=== PATIENT | female | born 1975 | race African-American/Black ===

== ENCOUNTER 2017-08-05 01:20 | Inpatient (IN) | payer MEDICAID ==
[~2017-08-05] VITALS: Ht 170.2 cm; Wt 79.8 kg
[~2017-08-05 01:20] MED LIST: FERR325E14 PO; [UNRECOGNIZED DRUG - REMARK] PO
[2017-08-05 01:25] VITALS: BP 136/82
--- NOTE | 2017-08-05 01:33 | NUR ---
TO ER BED 6
--- NOTE | 2017-08-05 01:37 | NUR ---
PATIENT PRESENTS TO ED WITH C/O LOWER PELVIC PAIN X 3 DAYS. PT DENIES N/V/D; SKIN IS PINK/WARM/DRY; AAOX4 WITH EVEN AND STEADY GAIT; LUNGS CLEAR BL; HR EVEN AND REGULAR; PT DENIES ANY FEVER, CP, SOB, OR COUGH AT THIS TIME; VSS; PATIENT POSITIONED FOR COMFORT; HOB ELEVATED; BEDRAILS UP X2; BED DOWN. ER MD MADE AWARE OF PT STATUS.
--- NOTE | 2017-08-05 01:41 | NUR ---
Patient being evaluated by physician at bedside.
[2017-08-05] MEDS ORDERED: NACL 0.9% 1,000 ML IV ONE (01:45)
[2017-08-05 02:06] LABS: ANION GAP 12.9 (8-16); CARBON DIOXIDE 24.7 mmol/L (21-32); CREATININE 0.7 mg/dL (0.6-1.3); POTASSIUM 3.6 mmol/L (3.5-5.1)
[2017-08-05 02:11] LABS: MEAN CORPUSCULAR HEMOGLOBIN 19 pg (27-31); MEAN CORPUSCULAR HGB CONC 29 g/dL (33-37); MEAN CORPUSCULAR VOLUME 67 fL (80-94); RED CELL DISTRIBUTION WIDTH 25.1 % (11.6-13.7); WHITE BLOOD COUNT (AUTO) 6.2 K/uL (4.8-10.8)
[2017-08-05 02:12] LABS: ALBUMIN 3.7 g/dL (3.4-5.0); LYMPHOCYTES % (MANUAL) 22 % (20-46); MONOCYTES % (MANUAL) 3 % (5-12); PLATELET COUNT (AUTO) 315 K/uL (140-450); TOTAL BILIRUBIN 0.3 mg/dL (0.0-1.0)
[2017-08-05 02:13] LABS: EOSINOPHILS % (MANUAL) 2 % (0-4)
[2017-08-05 02:20] LABS: PROTHROMBIN TIME 10.4 secs (10.8-13.4)
[2017-08-05] MEDS ORDERED: KETOROLAC 30 MG/ML VIAL IVP ONE (02:40)
[2017-08-05] MEDS ORDERED: NACL 0.9% 1,000 ML IV SCH (02:43)
[2017-08-05] MEDS ORDERED: FERR325E14 PO (03:02)
--- NOTE | 2017-08-05 03:08 | NUR ---
Patient will be admitted to care of DR KWOK. Admited to TELE 106B. Will go to room 106B. Belongings list completed. Report to ARLYN BARRETT .
[2017-08-05 03:50] VITALS: BP 142/80
--- NOTE | 2017-08-05 04:35 | NUR ---
RECEIVED REPORT FROM ED RN FOR CONTINUITY OF CARE. PATIENT IS ALERT AND ORIENTED X 4, DISCUSSED PLAN OF CARE WITH PATIENT. 42 Y.O. FEMALE BROUGHT TO UNIT WITH DX: ANEMIA, ORIENTED TO ENVIRONMENT. SHIFT ASSESSMENT DONE, VITAL SIGNS STABLE. NO RESPIRATORY DISTRESS NOTED ON ROOM AIR. PATIENT DENIES PAIN. IV PATENT AND INFUSING FLUIDS WELL. SKIN INTACT. MRSA SWAB COLLECTED AND WRISTBANDS APPLIED. SAFETY MEASURES ENFORCED, CALL LIGHT WITHIN REACH, WILL CONTINUE TO MONITOR.
--- NOTE | 2017-08-05 05:10 | NUR ---
VITAL SIGNS STABLE, BLOOD TRANSFUSION STARTED. PATIENT IN STABLE CONDITION, AT BEDSIDE WITH PATIENT.
--- NOTE | 2017-08-05 05:25 | NUR ---
VITAL SIGNS REMAIN STABLE, NO S/SX OF REACTION NOTED TO BLOOD TRANSFUSION.
--- NOTE | 2017-08-05 06:15 | NUR ---
PATIENT RESTING, NO DISTRESS OR DISCOMFORT NOTED. BLOOD TRANSFUSION IN PROCESS, NO REACTION NOTED.
--- NOTE | 2017-08-05 06:50 | NUR ---
DR. NICOLE CALLED, INFORMED OF BASIC ORDERS FOR ACTIVITY AND DIAGNOSIS. PER DR NICOLE, HE WILL BE TRANSFERRING CARE TO DR. EMERSON.
--- NOTE | 2017-08-05 07:30 | NUR ---
ENDORSED PATIENT TO DAY RN FOR CONTINUITY OF CARE, PATIENT IS IN STABLE CONDITION.
--- NOTE | 2017-08-05 07:31 | NUR ---
RECEIVED REPORT FROM ARNOLD NAYAK. PT IS ON ROOM AIR. PT IS AAOX4. IV TO LEFT AC #18 AND LEFT HAND #22 PATENT AND INTACT. PT IS CURRENTLY HAVING BLOOD TRANSFUSED, TOLERATING WELL WITH NO S/SX OF REACTION. SKIN IS INTACT. SAFETY PRECAUTIONS IN PLACE WITH BED IN LOWEST POSITION AND SIDE RAILS UP X2. CALL LIGHT WITHIN REACH. WILL CONTINUE TO MONITOR.
--- NOTE | 2017-08-05 07:52 | NUR ---
DR. EMERSON IN TO SEE PT. WILL FOLLOW UP ON ORDERS.
[2017-08-05 08:00] VITALS: BP 135/86
--- NOTE | 2017-08-05 08:45 | NUR ---
URINE SPECIMEN COLLECTED AND SENT TO LAB.
--- NOTE | 2017-08-05 09:10 | NUR ---
FIRST UNIT OF BLOOD TRANSFUSION COMPLETE, NO REACTIONS NOTED. SECOND UNIT RETRIEVED FROM LAB, VERIFIED WITH SECOND LICENSED CARE PROVIDER AT BLOOD BANK AND AT BEDSIDE. BLOOD TRANSFUSION INITIATED, NO REACTIONS NOTED. WILL CONTINUE TO MONITOR.
[2017-08-05] MEDS: NACL 0.45% 1,000 ML IV SCH ×2 (09:32→20:43)
--- NOTE | 2017-08-05 09:36 | NUR ---
PATIENT HAS BEEN SCREENED AND CATEGORIZED MODERATE NUTRITION RISK. PATIENT WILL BE SEEN WITHIN 3-5 DAYS OF ADMISSION. 08/08/17 - 08/10/17 AMBER LUBIN MBA, RD
--- NOTE | 2017-08-05 10:55 | NUR ---
MAILING MACHINE ASSISTANT PRESENT AT BEDSIDE.
--- NOTE | 2017-08-05 11:20 | NUR ---
BLOOD TRANSFUSION COMPLETE, NO REACTION NOTED. WILL CONTINUE TO MONITOR.
[2017-08-05 12:00] VITALS: BP 137/83
--- NOTE | 2017-08-05 12:28 | NUR ---
IV TO LEFT HAND #22 FOUND PULLED OUT. CANNULA INTACT. IV TO LEFT AC #18 PATENT AND INTACT, INFUSING WELL. WILL CONTINUE TO MONITOR.
--- NOTE | 2017-08-05 13:12 | NUR ---
PAGED DR. EMERSON REGARDING RESULTS OF TRANSVAGINAL ULTRASOUND. AWAITING CALLBACK.
--- NOTE | 2017-08-05 13:40 | NUR ---
RECEIVED CALLBACK FROM DR. EMERSON. UPDATED HIM ON RESULTS.
--- NOTE | 2017-08-05 14:55 | NUR ---
CHECKED ON PT. ALL NEEDS MET AT THIS TIME. CALL LIGHT WITHIN REACH.
[2017-08-05 16:00] VITALS: BP 143/90
--- NOTE | 2017-08-05 16:44 | NUR ---
CHECKED ON PT. RESTING AT THIS TIME, AROUSABLE. CALL LIGHT WITHIN REACH.
--- NOTE | 2017-08-05 19:04 | NUR ---
ENDORSED CARE TO ARNOLD NAYAK. PT IN STABLE CONDITION.
--- NOTE | 2017-08-05 19:05 | NUR ---
RECEIVED REPORT FROM DAY RN FOR CONTINUITY OF CARE. PATIENT IS ALERT AND ORIENTED X 4, DISCUSSED PLAN OF CARE WITH PATIENT. SHIFT ASSESSMENT DONE, VITAL SIGNS STABLE. NO RESPIRATORY DISTRESS OR DISCOMFORT NOTED ON ROOM AIR. PATIENT DENIES PAIN AT THIS TIME. IV TO LT AC PATENT AND INFUSING FLUIDS WELL. PATIENT STATES " I HAVEN'T ATE BECAUSE I DIDN'T LIKE THE FOOD TODAY." OFFERED A SNACK AND PATIENT REFUSED. SAFETY MEASURES ENFORCED, CALL LIGHT WITHIN REACH, WILL CONTINUE TO MONITOR.
[2017-08-05 20:00] VITALS: BP 146/76
--- NOTE | 2017-08-05 21:52 | NUR ---
PATIENT AMBULATING TO RESTROOM WITH STEADY GAIT, NO DISTRESS OR DISCOMFORT NOTED. WILL CONTINUE TO MONITOR.
[2017-08-06] VITALS: BP 145/81
--- NOTE | 2017-08-06 | NUR ---
VITAL SIGNS STABLE, PATIENT RESTING IN BED PROVIDED WITH A SNACK AND JUICE, TOLERATED WELL. CALL LIGHT WITHIN REACH, WILL CONTINUE TO MONITOR.
--- NOTE | 2017-08-06 02:05 | NUR ---
PATIENT AMBULATING TO RESTROOM, NO DISTRESS OR DISCOMFORT. IV PATENT AND INFUSING FLUIDS WELL.
[2017-08-06 04:00] VITALS: BP 129/68
--- NOTE | 2017-08-06 04:15 | NUR ---
VITAL SIGNS STABLE, PATIENT RESTING NO DISTRESS OR DISCOMFORT. INFORMED PATIENT WHEN LABS WILL BE TAKEN AND UPDATED ON PLAN OF CARE, VERBALIZED UNDERSTANDING. CALL LIGHT WITHIN REACH.
--- NOTE | 2017-08-06 06:06 | NUR ---
PATIENT RESTING IN BED, NO DISTRESS OR DISCOMFORT NOTED. CALL LIGHT WITHIN REACH, WILL CONTINUE TO MONITOR.
[2017-08-06 06:36] LABS: HEMATOCRIT 28.6 % (36-48); HEMOGLOBIN 8.6 g/dL (12.0-16.0); MEAN CORPUSCULAR HEMOGLOBIN 21 pg (27-31); MEAN CORPUSCULAR HGB CONC 30 g/dL (33-37); MEAN CORPUSCULAR VOLUME 71 fL (80-94); PLATELET COUNT (AUTO) 336 K/uL (140-450); RED BLOOD CELL COUNT(AUTO) 4.01 MIL/uL (4.20-5.40); RED CELL DISTRIBUTION WIDTH 25.9 % (11.6-13.7); WHITE BLOOD COUNT (AUTO) 4.8 K/uL (4.8-10.8)
[2017-08-06 06:56] LABS: ALBUMIN 3.1 g/dL (3.4-5.0); ANION GAP 13.3 (8-16); CARBON DIOXIDE 23.2 mmol/L (21-32); CREATININE 0.6 mg/dL (0.6-1.3); POTASSIUM 3.5 mmol/L (3.5-5.1); TOTAL BILIRUBIN 0.5 mg/dL (0.0-1.0)
[2017-08-06 07:20] LABS: LYMPHOCYTES % (MANUAL) 23 % (20-46); MONOCYTES % (MANUAL) 18 % (5-12)
--- NOTE | 2017-08-06 07:27 | NUR ---
ENDORSED PATIENT TO DAY RN FOR CONTINUITY OF CARE, PATIENT IS IN STABLE CONDITION.
--- NOTE | 2017-08-06 07:28 | NUR ---
RECEIVED REPORT FROM PM NURSE. PT IS SLEEPING, SHOWING NO SIGNS OF ACUTE DISTRESS. BOWEL SOUNDS PRESENT ON ALL FOUR QUADRANTS. IV ACCESS PATENT AND ASYMPTOMATIC. PT IS AMBULATORY. ON ROOM AIR. BED ON LOW POSITION, BILATERAL HALF SIDE RAILS UP, CALL LIGHT WITHIN REACH. WILL CONTINUE TO MONITOR.
[2017-08-06 08:00] VITALS: BP 153/97
[2017-08-06] MEDS: NACL 0.45% 1,000 ML IV SCH ×3 (08:50→08:53)
--- NOTE | 2017-08-06 09:25 | NUR ---
PT SITTING UPRIGHT IN BED, EATING BREAKFAST. NO SIGNS OF ACUTE DISTRESS. BED IN LOW POSITION WITH BILATERAL HALF SIDE RAILS UP, CALL LIGHT WITHIN REACH. WILL CONTINUE TO MONITOR.
--- NOTE | 2017-08-06 09:30 | NUR ---
RECEIVED DISCHARGE ORDER FROM DR EMERSON. NOTED, WILL CARRY OUT.
--- NOTE | 2017-08-06 11:15 | NUR ---
PT RESTING COMFORTABLY IN BED, WAITING TO DISCHARGE, NO SIGNS OF ACUTE DISTRESS. BED IN LOW POSITION WITH BILATERAL HALF SIDE RAILS UP, CALL LIGHT WITHIN REACH. WILL CONTINUE TO MONITOR.
[2017-08-06 12:00] VITALS: BP 141/79
--- NOTE | 2017-08-06 12:50 | NUR ---
EDUCATED PATIENT ON DISCHARGE INSTRUCTIONS INCLUDING SIGNS AND SYMPTOMS OF INFECTION AND WORSENING CONDITION, RESUMING LIGHT ACTIVITY, FOLLOW UP WITH PCP WITHIN 3-5 DAYS AND NEW PRESCRIPTIONS, PATIENT VERBALIZED UNDERSTANDING. PATIENT DENIES PAIN. REMOVED IV AND CUT OFF WRIST BANDS. REMOVED SOLUTIONS DEVELOPMENT ANALYST. ESCORTED PATIENT OUT TO FRONT LOBBY TO GO HOME VIA PRIVATE AUTO.
--- NOTE | 2017-08-06 16:33 | NUR ---
FAXED INITIAL REVIEW TO [facility] [phone] PHONE [phone] FAXED INITIAL REVIEW TO [facility] [phone] PHONE [phone]
== END 2017-08-06 12:50 | disposition home or self-care (01) | DRG 532 ==
LOC: MED 01:20 → MTU 02:56
PROVIDERS: ADMIT Internal Medicine; ATTEND Internal Medicine
PROC: 30233N1 Transfusion of Nonautologous Red Blood Cells into Peripheral Vein, Percutaneous Approach (ICD-10-PCS; principal; 2017-08-05)
DX: D25.9 Leiomyoma of uterus, unspecified (principal); D62 Acute posthemorrhagic anemia; N92.6 Irregular menstruation, unspecified; R19.09 Other intra-abdominal and pelvic swelling, mass and lump
CPT/HCPCS: 36415; 76830; 80053; 81025; 85025; 85610; 85730; 86886; 86900; 86901; 86920; 87081; 96361; 96374; 99285; J1885; J7030; P9016

== ENCOUNTER 2018-04-22 22:29 | Emergency (ER) | payer MEDICAID ==
[~2018-04-22] VITALS: Ht 170.2 cm; Wt 86.6 kg
[~2018-04-22 22:29] MED LIST changes: -[UNRECOGNIZED DRUG - REMARK] PO
[2018-04-22 22:36] VITALS: BP 130/90
[2018-04-23] MEDS: traMADol 50 MG TAB PO ONE (00:25)
[2018-04-23 00:40] VITALS: BP 136/85
== END 2018-04-23 00:40 | disposition home or self-care (01) ==
LOC: MED 22:29
DX: M72.2 Plantar fascial fibromatosis (principal); D64.9 Anemia, unspecified; Z79.899 Other long term (current) drug therapy
CPT/HCPCS: 73630; 99283; 99284

== ENCOUNTER 2019-01-24 08:44 | Emergency (ER) | payer MEDICAID, OTHER ==
[~2019-01-24] VITALS: Ht 170.2 cm; Wt 83.9 kg
--- NOTE | 2019-01-24 08:53 | NUR ---
PATIENT AMBULATED TO BED 8 AT THIS TIME.
[2019-01-24 08:54] VITALS: BP 127/99
--- NOTE | 2019-01-24 08:54 | NUR ---
PATIENT AMBULATED WITH STEADY GAIT TO BED 8
--- NOTE | 2019-01-24 09:15 | NUR ---
BIB FAMILY WITH C/O LOWER BACK PAIN X 3 DAYS. STATES IT IS A CONSTANT SHARP PAIN 9/10 AT THIS TIME. STATES SHE WAS SEEN BY HER PCP YESTERDAY AND WAS INSTRUCTED TO COME IN. . DENIES N/V/D; SKIN IS PINK/WARM/DRY; AAOX4 WITH EVEN AND STEADY GAIT; LUNGS CLEAR BL; HR EVEN AND REGULAR; PT DENIES ANY FEVER, CP, SOB, OR COUGH AT THIS TIME; PATIENT STATES PAIN OF 9/10 AT THIS TIME; VSS; PATIENT POSITIONED FOR COMFORT; HOB ELEVATED; BEDRAILS UP X2; BED DOWN. ER MD MADE AWARE OF PT STATUS.
[2019-01-24] MEDS ORDERED: DEXAMETHASONE 10 MG/ML VIAL IM ONE (09:40)
[2019-01-24] MEDS ORDERED: fentaNYL 0.05 MG/ML VIAL IM ONE (09:40)
[2019-01-24 10:33] LABS: EOSINOPHILS # (AUTO) 0.1 K/uL (0-0.4); LYMPHOCYTES # (AUTO) 0.6 K/uL (2.5-16.5); MONOCYTES # (AUTO) 0.4 K/uL (0.8-1.0); NEUTROPHILS # (AUTO) 3.8 K/uL (1.8-7.7); RED CELL DISTRIBUTION WIDTH 18.9 % (11.6-13.7); WHITE BLOOD COUNT (AUTO) 4.9 K/uL (4.8-10.8)
[2019-01-24 10:37] LABS: BASOPHILS % (AUTO) 0.8 % (0.0-2.0); EOSINOPHILS % (AUTO) 1.3 % (0.0-4.0); HEMATOCRIT 31.2 % (36-48); MEAN CORPUSCULAR HEMOGLOBIN 23 pg (27-31); MEAN CORPUSCULAR HGB CONC 29 g/dL (33-37); MEAN CORPUSCULAR VOLUME 81.1 fL (80-94); MONOCYTES % (AUTO) 7.4 % (1.7-9.3); NEUTROPHILS % (AUTO) 77.5 % (42.2-75.2); PLATELET COUNT (AUTO) 301 K/uL (140-450); RED BLOOD CELL COUNT(AUTO) 3.85 MIL/uL (4.20-5.40)
[2019-01-24 11:37] VITALS: BP 132/87
--- NOTE | 2019-01-24 11:37 | NUR ---
Patient discharged with v/s stable. Written and verbal after care instructions given and explained. Patient alert, oriented and verbalized understanding of instructions. Ambulatory with steady gait. All questions addressed prior to discharge. ID band removed. Patient advised to follow up with PMD. Rx of Robaxin, Tramadol and Motrin given. Patient educated on indication of medication including possible reaction and side effects. Opportunity to ask questions provided and answered.
== END 2019-01-24 11:37 | disposition home or self-care (01) ==
LOC: MED 08:44
DX: M54.41 Lumbago with sciatica, right side (principal); Z79.899 Other long term (current) drug therapy
CPT/HCPCS: 36415; 72100; 81002; 81025; 85025; 96372; 99284; J1100; J3010

== ENCOUNTER 2019-05-02 18:04 | Inpatient (IN) | payer OTHER ==
[~2019-05-02] VITALS: Ht 170.2 cm; Wt 82.1 kg
[2019-05-02 18:18] VITALS: BP 130/79
--- NOTE | 2019-05-02 19:05 | NUR ---
43 Y/O FEMALE PRESENTS TO ED WITH C/O BILAT LOWER ABD PAIN RADIATING TO RIGHT LOWER BACK. PT ALSO HERE D/T REFERRAL FROM PCP FOR POSSIBLE BLOOD TRANSFUSION. PT STATES HER PCP CALLED HER AND INFORMED HER THAT SHE MAY NEED A BLOOD TRANSFUSION. SHE HAS EXPERIANCED DIZZINESS THROUGHOUT THE DAY WITHOUT ALOC. PT IS ALERT TO NAME, PLACE, TIME, AND REASON. HER ABD PAIN IS 8/10 BUT CHRONIC FOR >6 MONTHS. PT IS SEEING HER PCP FOR CHROINC ABD PAIN AND FIBROIDS. VSS AT THIS TIME. POSITIONED IN BED FOR COMFORT. X1 SIDE RAIL UP. ER MD AWARE. CONTINUE TO MONITOR.
[2019-05-02 19:23] LABS: BASOPHILS % (AUTO) 0.2 % (0.0-2.0); EOSINOPHILS # (AUTO) 0.1 K/uL (0-0.4); EOSINOPHILS % (AUTO) 1.4 % (0.0-4.0); HEMATOCRIT 26.7 % (36-48); HEMOGLOBIN 7.7 g/dL (12.0-16.0); LYMPHOCYTES # (AUTO) 0.6 K/uL (2.5-16.5); LYMPHOCYTES % (AUTO) 12.9 % (20.5-51.1); MEAN CORPUSCULAR HEMOGLOBIN 22 pg (27-31); MEAN CORPUSCULAR HGB CONC 29 g/dL (33-37); MEAN CORPUSCULAR VOLUME 75.1 fL (80-94); MONOCYTES # (AUTO) 0.4 K/uL (0.8-1.0); MONOCYTES % (AUTO) 8.2 % (1.7-9.3); NEUTROPHILS # (AUTO) 3.3 K/uL (1.8-7.7); NEUTROPHILS % (AUTO) 77.3 % (42.2-75.2); PLATELET COUNT (AUTO) 367 K/uL (140-450); RED BLOOD CELL COUNT(AUTO) 3.55 MIL/uL (4.20-5.40); WHITE BLOOD COUNT (AUTO) 4.3 K/uL (4.8-10.8)
[2019-05-02 19:33] LABS: ANION GAP 11.8 (8-16); CARBON DIOXIDE 26.6 mmol/L (21-32); CREATININE 0.8 mg/dL (0.6-1.3); POTASSIUM 3.4 mmol/L (3.5-5.1)
[2019-05-02 19:39] LABS: ALBUMIN 3.4 g/dL (3.4-5.0); TOTAL BILIRUBIN 0.2 mg/dL (0.0-1.0)
--- NOTE | 2019-05-02 20:00 | NUR ---
PT IN BED RESTING WITH EYES OPEN. NO DISTRESS OF ANY KIND AT THIS TIME. NO C/O OF DIZZINESS. VSS. CONTINUE TO MONITOR.
--- NOTE | 2019-05-02 20:05 | NUR ---
XRAY AT BEDSIDE.
--- NOTE | 2019-05-02 20:34 | NUR ---
Dr. Emery evaluating patient at bedside.
[2019-05-02] MEDS ORDERED: NACL 0.9% 1,000 ML IV SCH (20:39)
[2019-05-02] MEDS ORDERED: HYDROcodone/APAP 5/325 MG 1 TAB TAB PO PRN (20:40)
[2019-05-02] MEDS ORDERED: ONDANSETRON 4 MG/2 ML VIAL IM/IVP PRN (20:40)
[2019-05-02] MEDS ORDERED: ZOLPIDEM 5 MG TAB PO PRN (20:40)
[2019-05-02] MEDS ORDERED: MORPHINE SULFATE 2 MG/ML SYR IVP PRN (20:40)
[2019-05-02] MEDS ORDERED: LORazepam 2 MG/ML VIAL IM/IVP PRN (20:40)
[2019-05-02] MEDS ORDERED: ACETAMINOPHEN 325 MG TAB PO PRN (20:40)
[2019-05-02] MEDS ORDERED: MORPHINE SULFATE 4 MG/ML SYR IVP ONE (20:40)
[2019-05-02] MEDS ORDERED: DOCUSATE SODIUM 100 MG GELCAP PO PRN (20:40)
[2019-05-02] MEDS ORDERED: cefTRIAXone 1,000 MG VIAL ONE (20:57)
--- NOTE | 2019-05-02 21:10 | NUR ---
REPORT GIVEN AND CARE TRANSFERED TO [facility] RN ROOM 111A. TRANSFERED VIA GURNEY WITH VSS.
[2019-05-02 21:26] LABS: PHOSPHORUS 2.7 mg/dL (2.5-4.9); THYROID STIMULATING HORMONE 0.57 uIU/mL (0.34-3.74)
[2019-05-02 21:30] VITALS: BP 126/56
--- NOTE | 2019-05-02 21:30 | NUR ---
RECEIVED BEDSIDE REPORT FROM SERVICE CREW LEADER, PATIENT IN BED, ON RA, NO SIGNS OF ACUTE DISTRESS, V/S STABLE, SKIN INTACT, MRSA SCREEN COLLECTED, PATIENT DENIES PAIN, FEELING DIZZY. STATES SHE WANTS TO LEAVE AMA ONCE BLOOD INFUSION COMPLETE, DR JURADO AWARE. CALL LIGHT WITHIN REACH. ADMISSION QUESTIONS COMPLETED.
--- NOTE | 2019-05-02 22:00 | NUR ---
CONSENT FOR BLOOD SIGNED AND PLACED IN CHART
--- NOTE | 2019-05-02 22:05 | NUR ---
BLOOD TRANSFUSION INFORMATION PLACED AT BEDSIDE
[2019-05-02 22:20] LABS: APPEARANCE,URINE CLOUDY (CLEAR); BILIRUBIN,URINE NEGATIVE (NEGATIVE); BLOOD, URINE 3+ (NEGATIVE); COLOR,URINE YELLOW (YELLOW); LEUKOCYTE ESTERASE ,URINE 3+ (NEGATIVE); NITRITE, URINE NEGATIVE (NEGATIVE); UGLUCOSE NEGATIVE (NEGATIVE)
[2019-05-02 22:26] LABS: BARBITURATE, URINE NEG. ng/ml (NEG <=200); BENZODIAZEPINE, URINE NEG. ng/mL (NEG <=200); CANNABINOID, URINE POS. ng/mL (NEG <=50); COCAINE, URINE NEG. ng/mL (NEG <=300); OPIATE, URINE NEG. ng/mL (NEG <=2000); PHENCYCLIDINE SCREEN,URINE NEG. ng/mL (NEG <=25)
[2019-05-02] MEDS ORDERED: ASCORBIC ACID 500 MG TAB PO SCH (22:30)
[2019-05-02] MEDS ORDERED: POTASSIUM CHLORIDE 10 MEQ TABER PO SCH (22:30)
[2019-05-02 22:45] LABS: RBC,URINE 20-50 /HPF (0-5); WBC,URINE TOO MANY TO COUNT /HPF (0-5)
--- NOTE | 2019-05-02 23:19 | NUR ---
DUE MEDICATIONS GIVEN, EDUCATION PROVIDED.
[2019-05-03] VITALS: BP 130/80
--- NOTE | 2019-05-03 00:43 | NUR ---
NOTIFIED PATIENT OF NEED FOR OCCULT BLOOD, PATIENT VERBALIZED UNDERSTANDING
--- NOTE | 2019-05-03 01:45 | NUR ---
STARTED BLOOD TRANSFUSION. BP 139/76 HR 73 TEMP 98.0 RR 14 DENIES PAIN
--- NOTE | 2019-05-03 02:00 | NUR ---
NO BLOOD TRANSFUSION REACTION. V/S STABLE
--- NOTE | 2019-05-03 03:30 | NUR ---
BLOOD CONTINUING TO INFUSE, V/S STABLE. PATIENT DENIES PAIN.
[2019-05-03 03:47] VITALS: BP 125/86
--- NOTE | 2019-05-03 05:06 | NUR ---
BLOOD TRANSFUSION COMPLETED, V/S STABLE
--- NOTE | 2019-05-03 05:29 | NUR ---
NOTIFIED PEANUT BLANCHER THAT CBC TO BE DRAWN AT 0700 AM
--- NOTE | 2019-05-03 06:20 | NUR ---
DUE ROCEPHIN GIVEN
[2019-05-03] MEDS ORDERED: cefTRIAXone 1,000 MG VIAL ONE (06:23)
--- NOTE | 2019-05-03 06:34 | NUR ---
PATIENT HAS BEEN SCREENED AND CATEGORIZED LOW NUTRITION RISK. PATIENT WILL BE SEEN WITHIN 7 DAYS OF ADMISSION. 05/08/19 WENDY WOOD MS, RDN
[2019-05-03] MEDS ORDERED: cefTRIAXone 1,000 MG in DEXTROSE 5% 100 ML IV SCH (07:00)
--- NOTE | 2019-05-03 07:15 | NUR ---
ENDORSED PATIENT TO DAY SHIFT NURSE, PATIENT STABLE.
--- NOTE | 2019-05-03 07:30 | NUR ---
PATIENT WAS AWAKE, ALERT. RESPIRATION EVEN, UNLABOR ON ROOM AIR. SKIN DRY AND WARM. IV PATENT AND INTACT, PATIENT REFUSED IVF AT THIS TIME. DENIED PAIN, DIZZINESS, N/V. PLAN OF CARE WAS DISCUSSED WITH PATIENT. BED AT LOW POSITION, SIDE RAILS UP. CALL LIGHT WITHIN REACH
[2019-05-03 07:57] LABS: ANION GAP 12.7 (8-16); CREATININE 0.8 mg/dL (0.6-1.3); POTASSIUM 3.7 mmol/L (3.5-5.1)
[2019-05-03 08:00] VITALS: BP 132/59
[2019-05-03] MEDS ORDERED: FERROUS SULFATE 325 MG TABEC PO SCH (08:00)
[2019-05-03 08:04] LABS: BASOPHILS % (AUTO) 0.5 % (0.0-2.0); EOSINOPHILS # (AUTO) 0.1 K/uL (0-0.4); EOSINOPHILS % (AUTO) 1.9 % (0.0-4.0); HEMOGLOBIN 7.6 g/dL (12.0-16.0); LYMPHOCYTES # (AUTO) 0.7 K/uL (2.5-16.5); LYMPHOCYTES % (AUTO) 17.4 % (20.5-51.1); MEAN CORPUSCULAR HEMOGLOBIN 23 pg (27-31); MEAN CORPUSCULAR HGB CONC 31 g/dL (33-37); MEAN CORPUSCULAR VOLUME 76.3 fL (80-94); MONOCYTES # (AUTO) 0.5 K/uL (0.8-1.0); MONOCYTES % (AUTO) 12.5 % (1.7-9.3); NEUTROPHILS # (AUTO) 2.7 K/uL (1.8-7.7); NEUTROPHILS % (AUTO) 67.7 % (42.2-75.2); PLATELET COUNT (AUTO) 310 K/uL (140-450); RED BLOOD CELL COUNT(AUTO) 3.28 MIL/uL (4.20-5.40); RED CELL DISTRIBUTION WIDTH 18.3 % (11.6-13.7); WHITE BLOOD COUNT (AUTO) 3.9 K/uL (4.8-10.8)
[2019-05-03 08:05] LABS: MAGNESIUM 1.8 mg/dL (1.8-2.4); PHOSPHORUS 2.9 mg/dL (2.5-4.9)
[2019-05-03 08:24] LABS: CHOL/HDL RATIO 2.4 (1-4.5)
--- NOTE | 2019-05-03 08:50 | NUR ---
PATIENT REQUESTED TO LEAVE AMA. DR. BEST WAS AT BEDSIDE. PATIENT WAS ENCOURAGED TO STAY, AND EXPLAINED TO RISKS OF LEAVING AMA PER MD. PATIENT VERBALIZED UNDERSTANDING, AND INSISTED ON LEAVING. AMA FORM WAS SIGNED. IV WAS REMOVED, CATHETER INTACT, NO ACTIVE BLEEDING SEEN. ENVIRONMENTAL MANAGEMENT SPECIALIST AND ID BAND WERE REMOVED. FAMILY AT BEDSIDE
[2019-05-03] MEDS ORDERED: SULF-58 PO (08:55)
[2019-05-03] MEDS ORDERED: ASCORBIC ACID 500 MG TAB PO SCH (09:00)
[2019-05-03] MEDS ORDERED: LACTOBACILLUS RHAMNOSUS GG 1 EACH CAP PO SCH (09:00)
--- NOTE | 2019-05-03 09:39 | NUR ---
PRESCRIPTION WAS GIVEN AND EXPLAINED TO THE PATIENT. PATIENT VERBALIZED UNDERSTANDING. ALL BELONGINGS WERE TAKEN WITH THE PATIENT.
[2019-05-04 09:36] LABS: T4 (THYROXINE) 6.3 ug/dL (4.5-12.0); TRANSFERRIN 324 mg/dL (200-370)
[2019-05-06 06:27] LABS: FERRITIN 21 ng/mL (15-150)
[2019-05-10] MEDS ORDERED: cefTRIAXone 2,000 MG in DEXTROSE 5% 100 ML IV SCH (07:00)
== END 2019-05-03 09:40 | disposition left against medical advice (07) | DRG 532 ==
LOC: MED 18:04 → MTU 20:39
PROVIDERS: ADMIT General Practice; ATTEND General Practice
PROC: 30233N1 Transfusion of Nonautologous Red Blood Cells into Peripheral Vein, Percutaneous Approach (ICD-10-PCS; principal; 2019-05-03)
DX: D25.9 Leiomyoma of uterus, unspecified (principal); D50.9 Iron deficiency anemia, unspecified; N39.0 Urinary tract infection, site not specified; Z80.9 Family history of malignant neoplasm, unspecified; Z82.49 Family history of ischemic heart disease and other diseases of the circulatory system; N92.1 Excessive and frequent menstruation with irregular cycle; E87.6 Hypokalemia; Z53.21 Procedure and treatment not carried out due to patient leaving prior to being seen by health care provider
CPT/HCPCS: 36415; 71045; 76830; 80048; 80053; 80305; 81001; 82150; 82607; 82728; 82746; 83036; 83540; 83690; 83735; 83880; 84100; 84134; 84436; 84443; 84484; 85025; 85045; 85610; 85730; 86886; 86900; 86901; 86920; 87040; 87081; 87086; 93005; 96365; 96375; 99285; J0696; J2270; J7030; J7060; P9016; Q0092

== ENCOUNTER 2019-11-01 08:18 | Emergency (ER) | payer OTHER ==
[~2019-11-01] VITALS: Ht 170.2 cm; Wt 86.2 kg
[~2019-11-01 08:18] MED LIST changes: +SULF-58 PO
[2019-11-01 08:31] VITALS: BP 132/66
--- NOTE | 2019-11-01 08:35 | NUR ---
pt taken to chair B
--- NOTE | 2019-11-01 08:37 | NUR ---
PT TO ED WITH C/O BILATERAL EAR PAIN S/P WASHING HAIR 3 DAYS AGO. PT STATES "I WAS WASHING MY HAIR AND I THINK THE WATER GOT INTO IT AND HASNT COME OUT" PT REPORTS "MUFFLED HEARING". IN CHAIR B FOR MD DURANT.
--- NOTE | 2019-11-01 08:51 | NUR ---
MOVED TO ED 10 FOR EAR IRRIGATION.
--- NOTE | 2019-11-01 09:26 | NUR ---
EMT AT BEDSIDE FOR EAR IRRIGATION
--- NOTE | 2019-11-01 09:37 | NUR ---
IRRIGATED RIGHT AND LEFT EAR WITH HYDROGEN PEROXIDE AND WATER WITHOUT ANY ISSUES. PT STATES THAT THEY FEEL A RELIEF IN BOTH EARS AND ARE ABLE TO HEAR MUCH BETTER.
[2019-11-01 09:40] VITALS: BP 122/74
--- NOTE | 2019-11-01 09:40 | NUR ---
Patient discharged with v/s stable. Written and verbal after care instructions given and explained. Patient alert, oriented and verbalized understanding of instructions. Ambulatory with steady gait. All questions addressed prior to discharge. ID band removed. Patient advised to follow up with PMD. Rx of IBUPROFEN AND DEBROX given. Patient educated on indication of medication including possible reaction and side effects. Opportunity to ask questions provided and answered.
== END 2019-11-01 09:40 | disposition home or self-care (01) ==
LOC: MED 08:18
DX: H61.23 Impacted cerumen, bilateral (principal); Z79.899 Other long term (current) drug therapy; Z79.2 Long term (current) use of antibiotics
CPT/HCPCS: 99283

== ENCOUNTER 2021-03-23 12:27 | Emergency (ER) | payer OTHER ==
[~2021-03-23] VITALS: Ht 175.3 cm; Wt 95.3 kg
[2021-03-23 12:35] VITALS: BP 148/100
--- NOTE | 2021-03-23 13:25 | NUR ---
PATIENT PRESENTS TO ED WITH LEFT KNEE PAIN AND SWELLING. PT STATES PAIN STARTED AT 0300 TODAY . DENIES N/V/D; SKIN IS PINK/WARM/DRY; AAOX4; LUNGS CLEAR BL; HR EVEN AND REGULAR; PT DENIES ANY FEVER, CP, SOB, OR COUGH AT THIS TIME; PATIENT STATES PAIN OF 10/10 AT THIS TIME TO THE LEFT KNEE; VSS; PATIENT POSITIONED FOR COMFORT; HOB ELEVATED; BEDRAILS UP X2; BED DOWN. ER MD MADE AWARE OF PT STATUS. PMH ANEMIA NKA
[2021-03-23] MEDS ORDERED: KETOROLAC 30 MG/ML VIAL IM ONE (13:55)
[2021-03-23] MEDS ORDERED: ASPIRIN 81 MG TAB.CHEW PO ONE (14:10)
[2021-03-23 14:42] LABS: BASOPHILS # (AUTO) 0.1 K/uL (0.00-0.22); BASOPHILS % (AUTO) 0.7 % (0.0-2.0); EOSINOPHILS % (AUTO) 0.2 % (0.0-4.0); HEMATOCRIT 33.6 % (36-48); HEMOGLOBIN 10.8 g/dL (12.0-16.0); LYMPHOCYTES # (AUTO) 0.7 K/uL (2.5-16.5); MEAN CORPUSCULAR HEMOGLOBIN 26 pg (27-31); MEAN CORPUSCULAR HGB CONC 32 g/dL (33-37); MONOCYTES # (AUTO) 0.6 K/uL (0.8-1.0); MONOCYTES % (AUTO) 6.2 % (1.7-9.3); NEUTROPHILS # (AUTO) 8.3 K/uL (1.8-7.7); NEUTROPHILS % (AUTO) 85.9 % (42.2-75.2); PLATELET COUNT (AUTO) 228 K/uL (140-450); RED CELL DISTRIBUTION WIDTH 14.7 % (11.6-13.7); WHITE BLOOD COUNT (AUTO) 9.7 K/uL (4.8-10.8)
[2021-03-23 14:58] LABS: ALBUMIN 3.6 g/dL (3.4-5.0); ANION GAP 11.1 (8-16); CARBON DIOXIDE 26.4 mmol/L (21-32); CREATININE 0.8 mg/dL (0.6-1.3); POTASSIUM 3.5 mmol/L (3.5-5.1); TOTAL BILIRUBIN 0.4 mg/dL (0.0-1.0)
[2021-03-23] MEDS ORDERED: IBUP-2213 PO (16:05)
--- NOTE | 2021-03-23 16:40 | NUR ---
APPLIED HUNTER WRAP AND PT DEMONSTRATED PROPER USE OF CRUTCHES WITHOUT ANY ISSUES
[2021-03-23 16:57] VITALS: BP 143/90
--- NOTE | 2021-03-23 16:59 | NUR ---
Patient discharged with v/s stable. Written and verbal after care instructions given and explained. Patient alert, oriented and verbalized understanding of instructions. Ambulatory with CRUTCHES. All questions addressed prior to discharge. ID band removed. Patient advised to follow up with PMD. Rx of IBUPROFEN given. Patient educated on indication of medication including possible reaction and side effects. Opportunity to ask questions provided and answered.
--- NOTE | 2021-03-23 17:36 | NUR ---
Luiz castillo in [facility] - 03/23/21 at 1737 by MED APPLIED HUNTER WRAP AND PT DEMONSTRATED PROPER USE OF CRUTCHES WITHOUT ANY ISSUES
== END 2021-03-23 16:59 | disposition home or self-care (01) ==
LOC: MED 12:27
DX: M17.12 Unilateral primary osteoarthritis, left knee (principal); M67.20 Synovial hypertrophy, not elsewhere classified, unspecified site; D64.9 Anemia, unspecified; Z79.899 Other long term (current) drug therapy
CPT/HCPCS: 36415; 71045; 73562; 80053; 83880; 84484; 85025; 85610; 85730; 93005; 93971; 96372; 99285; J1885